=== PATIENT | female | born 1965 | race Caucasian/White ===

== ENCOUNTER 2022-08-02 06:46 | Day surgery (SDC) | payer MEDICAID ==
[2022-07-30 14:25] LABS: COVID AG,FIA SOURCE NASAL SWAB
[~2022-08-02] VITALS: Ht 167.6 cm; Wt 78.2 kg
[~2022-08-02 06:46] MED LIST: LISI-893 PO; SODIUM CHLORIDE 0.9% 1,000 ML IV ONE; SODIUM CHLORIDE 0.9% 1,000 ML ONE; [UNRECOGNIZED DRUG - OTHER] PO
[2022-08-02] MEDS ORDERED: LIDOCAINE/PF 2% 5 ML SYRINGE IVP ONE (06:47)
[2022-08-02] MEDS ORDERED: PROPOFOL 1% 20 ML VIAL IVP ONE (06:47)
== END 2022-08-02 10:45 | disposition home or self-care (01) ==
LOC: SURGERY 06:46
PROVIDERS: ATTEND Internal Medicine Gastroenterology
DX: K63.5 Polyp of colon (principal); K64.8 Other hemorrhoids; Z20.822 Contact with and (suspected) exposure to COVID-19; I10 Essential (primary) hypertension
CPT/HCPCS: 87426; 45385; C9803; C1769; J7030; J2704; J3490